=== PATIENT | female | born 1960 | race Caucasian/White ===

== ENCOUNTER → 2020-12-12 | Outpatient (CLI) | payer BC | LOC: RAD 08:46 | DX: R09.02 Hypoxemia (principal) ==

== ENCOUNTER → 2020-12-12 | Outpatient (REF) | LOC: LAB 08:47 | DX: R09.02 Hypoxemia (principal) ==

== ENCOUNTER → 2021-04-11 | Outpatient (CLI) | payer BC | LOC: LAB 14:11 | DX: Z20.822 Contact with and (suspected) exposure to COVID-19 (principal) ==